=== PATIENT | male | born 1955 | race Caucasian/White ===

== ENCOUNTER 2020-08-24 09:21 | Emergency (ER) | payer MEDICARE, MEDICAID ==
[~2020-08-24] VITALS: Ht 182.9 cm; Wt 115.5 kg
[~2020-08-24 09:21] MED LIST: NOCURR
[2020-08-24] MEDS ORDERED: LIDOCAINE 1% 10 ML VIAL ONE (10:06)
[2020-08-24] MEDS ORDERED: LIDOCAINE/PF 1% 30 ML VIAL IM ONE (10:15)
[2020-08-24] MEDS ORDERED: BACITRACIN 0.9 GM PACKET OINTMENT TP ONE (10:15)
[2020-08-24] MEDS ORDERED: DOXYCYCLINE HYCLATE 100 MG TABLET PO ONE (10:30)
[2020-08-24] MEDS ORDERED: LIDOCAINE 1% 10 ML VIAL IM ONE (10:30)
[2020-08-24] MEDS ORDERED: MUPIROCIN CALCIUM 2% 22 GM OINTMENT TP ONE (10:30)
[2020-08-24 10:36] VITALS: BP 145/80
[2020-08-26] MEDS ORDERED: FISH1CAP27 PO (17:27)
[2020-08-26] MEDS ORDERED: ASPI-1450 PO (17:27)
[2020-08-26] MEDS ORDERED: ATOR20TA86 PO (17:27)
[2020-08-26] MEDS ORDERED: AMLO10TA55 PO (18:07)
[2020-08-26] MEDS ORDERED: ASPI-1522 PO (18:07)
== END 2020-08-24 10:40 | disposition home or self-care (01) ==
LOC: EMS 09:21
DX: L02.512 Cutaneous abscess of left hand (principal); L03.012 Cellulitis of left finger; I10 Essential (primary) hypertension
CPT/HCPCS: 10060; 99283; J3490